=== PATIENT | female | born 1950 | race Caucasian/White ===

== ENCOUNTER 2020-10-12 05:06 | Inpatient (IN) | payer MEDICARE, OTHER ==
[~2020-10-12] VITALS: Ht 165.1 cm; Wt 89.2 kg
[~2020-10-12 05:06] MED LIST: BUSP10TA PO; CEFD300C37 PO; CITA40TA5 PO; GABA300C10 PO; INSU100I13 SQ; LEVO200T5 PO; METF10002 PO; PANT40TA6 PO; PHEN-583 PO; RANI150C PO; ZOLP10TA5 PO
--- NOTE | 2020-10-12 05:25 | NUR ---
INITIAL PT CONTACT. PT PRESENTS TO ED C/O BLOOD IN URINE, URINE RETENTION AND "LOTS OF CLOTS WHEN I SIT ON THE TOILET TO PEE." PT HAD A BLADDER BIOPSY APPROX 3 WEEKS AGO AND HAS BEEN EXPERIENCING INTERMITTENT BLEEDING SINCE,"TODAY WAS THE WORSE IT'S BEEN". PT STATES SHE IS ALSO DIZZY, "IT COULD BE FROM MY COVID SHOT I GOT YESTERDAY." PT SITTING UPRIGHT ON [employer] CARVER VSS. FAMILY AT BEDSIDE. CALL LIGHT AND PERSONAL BELONGINGS WITHIN REACH.
[2020-10-12] MEDS ORDERED: LIDOCAINE 2%,20 ML JEL.PF.APP MM ONE (05:46)
[2020-10-12 06:07] LABS: BASOPHILS % (AUTO) 1 % (0-1); EOSINOPHILS % (AUTO) 0 % (1-7); LYMPHOCYTES % (AUTO) 9 % (22-44); MEAN CORPUSCULAR HEMOGLOBIN 26.9 pg (27.0-34.8); MEAN CORPUSCULAR HGB CONC 32.5 g/dL (32.4-35.8); MEAN PLATELET VOLUME 7.7 fL (7.4-10.4); MONOCYTES % (AUTO) 5 % (2-9); NEUTROPHILS % (AUTO) 85 % (42-75); PLATELET COUNT 282 x10^3/uL (130-400); RED BLOOD COUNT 4.21 x10^6/uL (3.82-5.3); RED CELL DISTRIBUTION WIDTH 15.6 % (9.6-15.2)
[2020-10-12 06:18] LABS: ALBUMIN 3.6 g/dL (3.4-5.0); ANION GAP 12 mmol/L (5-15); CALCIUM 8.5 mg/dL (8.5-10.1); CHLORIDE 103 mmol/L (98-107); CREATININE 1.05 mg/dL (0.55-1.02)
--- NOTE | 2020-10-12 06:33 | NUR ---
[address] WAY TERRELL INSERTION PER ERP ORDER. PT TOLERATED WELL. PT CONNECTED TO CBI, TOLERATING WELL AT THIS TIME. CALL LIGHT AND PERSONAL BELONGINGS WITHIN REACH. FAMILY AT BEDSIDE
[2020-10-12 06:44] LABS: MD NO
--- NOTE | 2020-10-12 07:00 | NUR ---
assumed care of pt. report from Mary COBOS pt here for difficulty urinating and hematuria with multiple clots after bladder bx 3 weeks ago pt has 3-way augustin in place and CBI has been initiated with og dark bloody output. pt reports intense pressure at this time and output has decreased pt augustin hand irrigated and clots passed. output not flowing and pt reports decreased pressure pt family at bedside
--- NOTE | 2020-10-12 07:01 | NUR ---
BEDSIDE REPORT TO RASHAWN COBOS
--- NOTE | 2020-10-12 07:05 | NUR ---
CBI CONTINUES. URINE SLIGHTLY WOOD CUT ENGRAVER IN COLOR. APPROX 1000ML IN AND 1200ML OUT SINCE INSERTION. PT CONTINUES TO TOLERATE WELL. NO ADDITIONAL NEEDS AT THIS TIME. CALL LIGHT AND PERSONAL BELONGINGS WITHIN REACH. FAMILY REMAINS AT BEDSIDE.
--- NOTE | 2020-10-12 07:15 | NUR ---
oral swabs given for comfort pt resting
--- NOTE | 2020-10-12 07:30 | NUR ---
pt reports relief of pain. dozing intermittently no new c/o
--- NOTE | 2020-10-12 08:00 | NUR ---
no changes. pt CBI continues with bloody drainage
--- NOTE | 2020-10-12 08:35 | NUR ---
hand flush augustin, well tolerated
--- NOTE | 2020-10-12 09:00 | NUR ---
hand flush augustin multiple times for large bloody clots
[2020-10-12 09:23] LABS: MICROSCOPIC INDICATED
--- NOTE | 2020-10-12 10:00 | NUR ---
pt cantu required multiple instanes of flushing for clots in CBI
[2020-10-12] MEDS ORDERED: SODIUM CHLORIDE FLUSH 10ML SYR IVF PRN (11:30)
--- NOTE | 2020-10-12 11:31 | NUR ---
Dr. Shaikh at bedside for eval
--- NOTE | 2020-10-12 11:41 | NUR ---
pt has been swabbed for COVID by Dr. Sanchez for pre-op bed assignment has been recieved. attempting to call report
--- NOTE | 2020-10-12 11:46 | NUR ---
report called to Alexandr COBOS
--- NOTE | 2020-10-12 11:57 | NUR ---
pt has had a total of 1500cc of CBI fluid infused
[2020-10-12] MEDS ORDERED: ONDANSETRON ODT 4 MG PO PRN (12:00)
[2020-10-12] MEDS ORDERED: ONDANSETRON 2MG/ML, 2ML IVPush PRN ×2 (12:00→14:30)
[2020-10-12] MEDS ORDERED: MIDAZOLAM 1 MG/ML, 2ML ONE (12:24)
[2020-10-12] MEDS ORDERED: FENTANYL PF 250 MCG/5ML ONE (12:25)
[2020-10-12] MEDS: HYDROmorphone 2 MG/ML, 1ML IVPush PRN (12:35)
[2020-10-12 12:44] VITALS: BP 116/78
[2020-10-12] MEDS: SODIUM CHLORIDE 0.9% 1,000 ML IV SCH ×2 (12:54→16:33)
[2020-10-12] MEDS ORDERED: EPHEDRINE 50 MG/ML, 1ML ONE (14:19)
[2020-10-12] MEDS ORDERED: SUCCINYLCHOLINE 20 MG/ML, 10ML ONE (14:21)
[2020-10-12] MEDS ORDERED: PROPOFOL 10 MG/ML, 20ML ONE (14:21)
[2020-10-12] MEDS ORDERED: ONDANSETRON 2MG/ML, 2ML ONE (14:21)
[2020-10-12] MEDS ORDERED: ROCURONIUM 10MG/ML,5ML ONE (14:21)
[2020-10-12] MEDS ORDERED: DEXAMETHASONE 4 MG/ML, 1ML ONE (14:21)
[2020-10-12] MEDS ORDERED: CEFAZOLIN 1,000 MG ONE ×2 (14:23)
[2020-10-12] MEDS ORDERED: LABETALOL 5MG/ML, 20ML IV PRN (14:30)
[2020-10-12] MEDS ORDERED: ACETAMINOPHEN 325 MG TABLET PO PRN (14:30)
[2020-10-12] MEDS ORDERED: hydrALAzine 20 MG/ML, 1ML IV PRN (14:30)
[2020-10-12] MEDS ORDERED: PROMETHAZINE 25 MG/ML, 1ML IVPush PRN (14:30)
[2020-10-12] MEDS ORDERED: FENTANYL PF 100 MCG/2ML IV PRN (14:30)
[2020-10-12] MEDS ORDERED: HYDROmorphone 1 MG/ML, 1ML INJ IVPush PRN (14:30)
[2020-10-12] MEDS ORDERED: OXYcodone 5 MG/5 ML ORAL.SOL UDC PO PRN (14:30)
[2020-10-12] MEDS: INSULIN LISPRO 100 UNITS/ML, PEN SQ-INSULIN SCH ×2 (16:05→22:14)
[2020-10-12] MEDS: CEFTRIAXONE PMX 1GM/50ML 50 ML IV SCH (16:32)
[2020-10-12 20:00] VITALS: BP 118/71
[2020-10-13] VITALS (7 sets, daily range): BP systolic 102–135; BP diastolic 53–72
[2020-10-13 04:48] LABS: BASOPHILS % (AUTO) 0 % (0-1); EOSINOPHILS % (AUTO) 0 % (1-7); LYMPHOCYTES % (AUTO) 17 % (22-44); MEAN CORPUSCULAR HEMOGLOBIN 27.8 pg (27.0-34.8); MEAN CORPUSCULAR HGB CONC 33.2 g/dL (32.4-35.8); MEAN PLATELET VOLUME 7.7 fL (7.4-10.4); MONOCYTES % (AUTO) 5 % (2-9); NEUTROPHILS % (AUTO) 77 % (42-75); PLATELET COUNT 234 x10^3/uL (130-400); RED BLOOD COUNT 3.37 x10^6/uL (3.82-5.3); RED CELL DISTRIBUTION WIDTH 16.4 % (9.6-15.2)
[2020-10-13 04:55] LABS: MD NO
[2020-10-13 04:59] LABS: ANION GAP 8 mmol/L (5-15); CALCIUM 8.5 mg/dL (8.5-10.1); CHLORIDE 111 mmol/L (98-107)
[2020-10-13 05:01] LABS: CREATININE 0.66 mg/dL (0.55-1.02)
[2020-10-13] MEDS: SODIUM CHLORIDE 0.9% 1,000 ML IV SCH (06:26)
[2020-10-13] MEDS: HYDROmorphone 2 MG/ML, 1ML IVPush PRN (06:26)
[2020-10-13] MEDS: INSULIN LISPRO 100 UNITS/ML, PEN SQ-INSULIN SCH ×4 (07:00→20:07)
[2020-10-13] MEDS ORDERED: HYDROcodone/APAP 5/325 TABLET PO PRN (10:00)
[2020-10-13] MEDS: HYDROcodone/APAP 5/325 TABLET PO PRN (10:56)
[2020-10-13] MEDS: CEFTRIAXONE PMX 1GM/50ML 50 ML IV SCH (13:43)
[2020-10-14] MEDS ORDERED: DIPHENHYDRAMINE 25 MG CAPSULE PO PRN (01:00)
[2020-10-14 01:08] VITALS: BP 123/70
[2020-10-14] MEDS: SODIUM CHLORIDE 0.9% 1,000 ML IV SCH (01:24)
[2020-10-14 05:16] LABS: BASOPHILS % (AUTO) 1 % (0-1); EOSINOPHILS % (AUTO) 5 % (1-7); LYMPHOCYTES % (AUTO) 37 % (22-44); MEAN CORPUSCULAR HEMOGLOBIN 27.7 pg (27.0-34.8); MEAN CORPUSCULAR HGB CONC 32.7 g/dL (32.4-35.8); MEAN PLATELET VOLUME 7.7 fL (7.4-10.4); MONOCYTES % (AUTO) 6 % (2-9); NEUTROPHILS % (AUTO) 52 % (42-75); PLATELET COUNT 233 x10^3/uL (130-400); RED BLOOD COUNT 3.24 x10^6/uL (3.82-5.3); RED CELL DISTRIBUTION WIDTH 15.8 % (9.6-15.2)
[2020-10-14 05:22] LABS: ANION GAP 5 mmol/L (5-15); CALCIUM 8.1 mg/dL (8.5-10.1); CHLORIDE 112 mmol/L (98-107); CREATININE 0.61 mg/dL (0.55-1.02)
[2020-10-14 05:28] LABS: MD NO
[2020-10-14] MEDS: INSULIN LISPRO 100 UNITS/ML, PEN SQ-INSULIN SCH ×2 (07:00→11:33)
[2020-10-14 07:34] VITALS: BP 129/79
[2020-10-14] MEDS ORDERED: FOSF3PAC4 PO (12:03)
[2020-10-14] MEDS: HYDROcodone/APAP 5/325 TABLET PO PRN (12:13)
[2020-10-14 13:07] VITALS: BP 124/70
[2020-10-14] MEDS: CEFTRIAXONE PMX 1GM/50ML 50 ML IV SCH (14:24)
== END 2020-10-14 15:36 | disposition home or self-care (01) | DRG 988 ==
LOC: ED 10:43 → OBSVTOIN 11:15 → INTOOBSV 11:15 → 4NE 11:15 → DCLOUNGE 10-14 15:31
PROVIDERS: ADMIT Internal Medicine; ATTEND Internal Medicine
PROC: 0TCB8ZZ Extirpation of Matter from Bladder, Via Natural or Artificial Opening Endoscopic (ICD-10-PCS; 2020-10-12)
PROC: 0T9B70Z Drainage of Bladder with Drainage Device, Via Natural or Artificial Opening (ICD-10-PCS; 2020-10-12)
PROC: 0T5B8ZZ Destruction of Bladder, Via Natural or Artificial Opening Endoscopic (ICD-10-PCS; principal; 2020-10-12 13:15)
DX: N99.820 Postprocedural hemorrhage of a genitourinary system organ or structure following a genitourinary system procedure (principal); N39.0 Urinary tract infection, site not specified; R31.0 Gross hematuria; D64.9 Anemia, unspecified; E03.9 Hypothyroidism, unspecified; E11.65 Type 2 diabetes mellitus with hyperglycemia; F32.9 Major depressive disorder, single episode, unspecified; G62.9 Polyneuropathy, unspecified; J32.9 Chronic sinusitis, unspecified; K58.0 Irritable bowel syndrome with diarrhea; K21.9 Gastro-esophageal reflux disease without esophagitis; R53.81 Other malaise; Z20.822 Contact with and (suspected) exposure to COVID-19; I95.9 Hypotension, unspecified; Z90.49 Acquired absence of other specified parts of digestive tract; Z90.710 Acquired absence of both cervix and uterus; Y84.8 Other medical procedures as the cause of abnormal reaction of the patient, or of later complication, without mention of misadventure at the time of the procedure; Y92.9 Unspecified place or not applicable
CPT/HCPCS: 36415; 80048; 81001; 82040; 82962; 83036; 85025; 87077; 87086; 87106; 87186; 87635; 93005; 96365; 96375; 99285; G0378; J0690; J0696; J1100; J1170; J2250; J2405; J2704; J3010; J0330; J1815; J7030; Q0163

== ENCOUNTER 2021-03-29 13:34 | Emergency (ER) | payer MEDICARE, OTHER ==
[~2021-03-29] VITALS: Ht 165.1 cm; Wt 90.5 kg
[~2021-03-29 13:34] MED LIST changes: +FOSF3PAC4 PO
--- NOTE | 2021-03-29 14:37 | NUR ---
claim taker: Pt ambulatory to room from lobby at this time.
[2021-03-29] MEDS ORDERED: DIAZEPAM 5 MG/ML, 2ML IM ONE (15:00)
[2021-03-29] MEDS ORDERED: KETOROLAC 30 MG/1 ML IM ONE ×2 (15:00)
[2021-03-29] MEDS ORDERED: KETOROLAC 30 MG/1 ML ONE (15:19)
[2021-03-29] MEDS ORDERED: DIAZEPAM 5 MG/ML, 2ML ONE (15:19)
--- NOTE | 2021-03-29 15:45 | NUR ---
LABS HAVE BEEN DRAWN. PT HAS BEEN PLACED ON CARDIAC AND VITALS MONITORS. PT MEDICATED PER ERP ORDER. FAMILY AT BEDSIDE. WILL CONTINUE TO MONITOR.
[2021-03-29 15:58] LABS: TROPONIN I < 0.015 ng/mL (0.000-0.045)
[2021-03-29 16:00] VITALS: BP 153/72
== END 2021-03-29 16:33 | disposition home or self-care (01) ==
LOC: ED 16:30
DX: R07.89 Other chest pain (principal); M62.830 Muscle spasm of back; E11.9 Type 2 diabetes mellitus without complications; E78.5 Hyperlipidemia, unspecified; Z90.49 Acquired absence of other specified parts of digestive tract
CPT/HCPCS: 36415; 84484; 93005; 96372; 99284; J1885; J3360